=== PATIENT | female | born 1945 ===

== ENCOUNTER 2022-09-04 05:36 | Day surgery (SDC) | payer OTHER ==
[~2022-09-04] VITALS: Ht 170.2 cm; Wt 82.6 kg
[2022-09-04] MEDS ORDERED: TRAM1TAB98 PO (08:26)
== END 2022-09-04 10:40 | disposition home or self-care (01) ==
LOC: CIR.AMB 05:36
PROVIDERS: ATTEND Surgery
DX: C20 Malignant neoplasm of rectum (principal); I10 Essential (primary) hypertension; R73.03 Prediabetes; K59.09 Other constipation; Z20.822 Contact with and (suspected) exposure to COVID-19